=== PATIENT | female | born 2000 | race Caucasian/White ===

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

== ENCOUNTER 2023-12-09 13:29 | Emergency (ER) | payer MEDICAID ==
[2023-12-09 13:30] VITALS: TEMP 98.5
[2023-12-09 14:09] LABS: URINE APPEARANCE CLOUDY (CLEAR/HAZY); URINE BLOOD NEGATIVE (NEGATIVE); URINE COLOR YELLOW (YELLOW); URINE GLUCOSE TRACE (NEGATIVE); URINE KETONE TRACE (NEGATIVE); URINE NITRATE NEGATIVE (NEGATIVE); URINE PROTEIN(semi-quant) NEGATIVE (NEGATIVE)
[2023-12-09 14:31] LABS: COLLECTION METHOD CLEAN CATCH
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
[2023-12-09 15:50] VITALS: BP 117/77; PULSE 64
--- NOTE | 2023-12-12 11:00 | NUR ---
MORGAN received a call from APS Roque mcleod requesting additional information or address on pt. MORGAN advised she did not have an address and answered all other questions.
== END 2023-12-09 15:50 | disposition home or self-care (01) ==
LOC: COL.ER 13:29
PROVIDERS: Emergency Medicine
DX: R30.0 Dysuria (principal); E86.0 Dehydration